=== PATIENT | male | born 1985 | race Caucasian/White ===

== ENCOUNTER 2018-06-09 05:13 | Emergency (ER) | payer MEDICARE ==
[~2018-06-09 05:13] MED LIST: ACE500 PO; AMOX-362 PO; AMOX-559 PO; AMPH20TA18 PO; AMPH5CAP9 PO; ARI10 PO; ARIP15TA9 PO; ASPI-757 PO; AUG875 PO; BUPR1PAT9 TD; CEPH-1 PO; CLON-327 PO; CYC10 PO; CYCL10TA29 PO; DEX5 PO; DIA10 PO; DIA5 PO; DIAZ-1 PO; DIVA250T84 PO; DUL20 PO; DUL30 PO; FENT-17 TD; FENT-23 TD; FENT1PAT40; FENT1PAT40 TOP; GABA-549 PO; HYDR-2946 PO; HYDR-2954 PO; HYDR-3140 PO; HYDR-4309 PO; HYDR1TAB PO; HYDR25CA83 PO; IBU800 PO; IBUP-136 PO; IBUP-1618 PO; IBUP800T37 PO; KET10 PO; LOM PO; LOR5 PO; LOR5/325 PO; LOR75 PO; LUR80PT PO; METH4TAB57 PO; METH4TAB66 PO; MID PO; MIRT-1 PO; NAP250 PO; NO ROUTINE MEDS; NOR10/325 PO; OLA5 PO; OTC COLD MEDS; OXYC-689 PO; OXYC-823 PO; OXYC-854 PO; OXYC-865 PO; OXYC-869 PO; OXYC-870 PO; PAL3PT PO; PALI6TAB8 PO; PEN250 PO; PENI-24 PO; PENT1TAB PO; PER PO; PHEN118S56 PO; PRE20 PO; PRO25 PO; PROM-110 PO; ROBC PO; TRA50 PO; TRAM-420 PO; TRAM-627 PO; TRAZ50 PO; WAR5 PO; [UNRECOGNIZED DRUG - CODE] PO
--- NOTE | 2018-06-09 05:19 | ER Report ---
History and Physical Time Seen By MD: 05:19 HPI/ROS CHIEF COMPLAINT: Right index finger laceration HISTORY OF PRESENT ILLNESS: 32-year-old male presents ambulatory to the ER complaining of right index finger laceration while whittling. Patient states he cut his right index finger with a knife [place] was cutting up some wood. Patient's tetanus shot is greater than 10 years. He notes numbness down the side of his finger. He likely injured the digital nerve. Patient demonstrates full range of motion. All tendon function appears intact on gross range of motion. Allergies: Coded Allergies: Adhesive Bandage (Verified Allergy, Mild, RED, ITCHING, 06/09/18) Home Meds Discontinued Scripts Amoxicillin (AMOXICILLIN) 500 Mg Capsule, 1 CAP PO Q8H for 10 Days, #30 CAPSULE 0 Refills Prov:ARIEL SANON MD 07/14/17 Hx Smoking: Yes (1/2-1 ppd) Smoking Status: Current: Every Day Smoker Exposure to Second Hand Smoke?: No Hx Substance Use Disorder: Yes (MARIJUANA ) Hx Alcohol Use: Yes (prefers not to drink) Constitutional Vital Sign - Last 24 Hours 06/09/18 06/09/18 06/09/18 06/09/18 05:13 05:17 05:17 05:28 Temp 98.2 Pulse ??? 107 99 Resp 14 B/P (MAP) 135/93 (107) 135/93 Pulse Ox 94 94 O2 Delivery Room Air 06/09/18 06/09/18 05:30 05:43 Pulse 96 B/P (MAP) 127/94 (105) Physical Exam General appearance: Mild distress, hyperventilating Respiratory: Chest is non tender, lungs are clear to auscultation. Cardiac: Regular rate and rhythm Extremities: right hand examination shows neurovascularly intact digits except for there is loss of light touch on the radial aspect of the right index finger. Patient sustained a transverse laceration between the PIP and MCP joint. It transversely transects about half of the digit. There is no melania bleeding. All tendon function appears intact DIFFERENTIAL DIAGNOSIS: After history and physical exam differential diagnosis was considered for finger laceration, nerve laceration, digital artery laceration, joint penetration and foreign body. Medical Decision Making ED Course/Re-evaluation ED Course Patient was minute to an examination room. H&P was done. The differential diagnoses was considered. On clinical examination. Patient has loss of sensation. He likely injured the digital nerve. Patient's tetanus status was updated with a booster vaccination. The wound was repaired as noted below. Patient was advised wound care. Suture removal will be in 10 days. Procedure: Laceration repair. Verbal consent was obtained from the patient. The 1.9 cm laceration on the radial aspect of the right index finger just distal to the MCP joint was anesthetized in the usual fashion. The wound was scrubbed, draped and explored to its base with a gloved finger. There were no deep structures involved. The wound was repaired with 5-0 Prolene 2 sutures. The wound repair was simple. The procedure was performed by myself. Decision to Disposition Date: Jun 09, 2018 Decision to Disposition Time: 05:27 Depart Departure Latest Vital Signs Vital Signs Date Time Temp Pulse Resp B/P (MAP) Pulse Ox O2 Delivery O2 Flow Rate FiO2 06/09/18 05:43 96 06/09/18 05:30 127/94 (105) 06/09/18 05:28 94 06/09/18 05:17 98.2 14 Room Air Impression: Primary Impression: Laceration of index finger Condition: Improved Disposition: HOME OR SELF-CARE Referrals: ANNY DC MD (PCP) Patient Instructions: Finger Laceration (ED) Additional Instructions: Form daily wound care, gently cleanse the wound with baby shampoo or a mild soap, blot dry Apply a thin layer of anabolic ointment and a Band-Aid Have your stitches removed in 10 days Problem Qualifiers Primary Impression: Laceration of index finger Encounter type: initial encounter Damage to nail status: without damage Foreign body presence: without foreign body Laterality: right Qualified Codes: S61.210A - Laceration without foreign body of right index finger without damage to nail, initial encounter ZAHIRA JASON DO Jun 09, 2018 05:19
[2018-06-09] MEDS ORDERED: DIPHTH/TETANUS/ACEL. PERTUSSIS IM ONLY ONE (05:25)
[2018-06-09 05:30] VITALS: BP 127/94
== END 2018-06-09 05:59 | disposition home or self-care (01) ==
LOC: ER 05:17
DX: S61.210A Laceration without foreign body of right index finger without damage to nail, initial encounter (principal)
CPT/HCPCS: 90471; 90715; 99283

== ENCOUNTER 2018-09-18 01:50 | Emergency (ER) | payer MEDICARE ==
[~2018-09-18 01:50] MED LIST changes: -HYDR-4309 PO; +HYDR-653 PO
[2018-09-18 01:57] VITALS: BP 130/89
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
[2018-09-18] MEDS ORDERED: IBUPROFEN 600 MG TAB PO ONE (03:55)
[2018-09-18] MEDS ORDERED: ACETAMINOPHEN 325 MG TAB PO ONE (03:55)
== END 2018-09-18 04:08 | disposition home or self-care (01) ==
LOC: ER 03:34
DX: S01.81XA Laceration without foreign body of other part of head, initial encounter (principal); Y04.2XXA Assault by strike against or bumped into by another person, initial encounter
CPT/HCPCS: 12013; 70450; 72125; 99284; A9270

== ENCOUNTER 2018-11-11 12:13 | Emergency (ER) | payer MEDICARE ==
[2018-11-11 12:17] VITALS: BP 151/95
--- NOTE | 2018-11-11 12:19 | ER Report ---
History and Physical Time Seen By MD: 12:17 HPI/ROS CHIEF COMPLAINT: Numbness and tingling in both arms HISTORY OF PRESENT ILLNESS: This is a 32-year-old male presents to the emergency department for numbness and tingling in both arms. Patient states that over the last 3 days he's had increased numbness and tingling in bilateral arms, more intense on the left than the right. No injury or last couple days however he states that several weeks ago he did slip and fall landing on his left arm and knee. He is also been having some neck discomfort or last several days with decreased range of motion. No nausea or vomiting. No chest pain or shortness of breath. No fevers or chills. No rashes. No meningismus. REVIEW OF SYSTEMS: Constitutional: No fever, no chills. Eyes: No discharge. ENT: No sore throat. Cardiovascular: No chest pain, no palpitations. Respiratory: No cough, no shortness of breath. Gastrointestinal: No abdominal pain, no vomiting. Genitourinary: No hematuria. Musculoskeletal: As above. Skin: No rashes. Neurological: As above. Allergies: Coded Allergies: Adhesive Bandage (Verified Allergy, Mild, RED, ITCHING, 06/09/18) Home Meds Active Scripts Methylprednisolone (METHYLPREDNISOLONE) 4 Mg Tab.ds.pk, 4 MG PO DIRECTED, #1 PACK 0 Refills Prov:MERRY HAYES Naibl CALENDER LET OFF OPERATOR-BC 11/11/18 Reported Medications Aspirin (ASPIRIN) 325 Mg Tablet, 325 MG PO Q4-6H PRN for BACK PAIN, TAB 11/11/18 Ibuprofen (IBUPROFEN) 800 Mg Tablet, 1 TAB PO Q8H, TAB 11/11/18 Past Medical/Surgical History The patient has a past medical and surgical history of "pinched nerves", headaches, smokes, pneumonia, chronic bronchitis, hip and back pain, compression fracture of the cervical and fusion of the lumbar spine, chronic back pain, multiple dental caries, uses marijuana, schizoaffective disorder, treated with marijuana, previous suicide attempts by hanging, lower dentition and gums surgery. Reviewed Nurses Notes: Yes Hx Smoking: Yes (10/05- ppd) Smoking Status: Current: Every Day Smoker Exposure to Second Hand Smoke?: No Hx Substance Use Disorder: Yes (MARIJUANA ) Hx Alcohol Use: Yes (prefers not to drink) Constitutional Vital Sign - Last 24 Hours 11/11/18 12:17 Temp 98.0 Pulse 81 Resp 17 B/P (MAP) 151/95 Pulse Ox 94 O2 Delivery Room Air Physical Exam General Appearance: The patient is alert, has no immediate need for airway protection and no signs of toxicity. Eyes: Pupils equal and round no pallor or injection. ENT, Mouth: Mucous membranes are moist. Respiratory: There are no retractions, lungs are clear to auscultation. Cardiovascular: Regular rate and rhythm. Gastrointestinal: Abdomen is soft and non tender, no masses, bowel sounds normal. Neurological: Alert and oriented 4. Moving all extremities. Following all commands. No focal neuro deficits. Skin: Warm and dry, no rashes. Musculoskeletal: Neck is supple non tender. Extremities are nontender, nonswollen and have full range of motion. DIFFERENTIAL DIAGNOSIS: After history and physical exam differential diagnosis was considered for contusion, abrasion, cervical radiculopathy, thoracic radiculopathy, impingement syndrome. Medical Decision Making EKG/Imaging Imaging Location: [facility] Patient: Toan Whitaker : 1985 Visit/Account:[id number] Date of [facility]: 11/11/2018 5 views cervical spine Indication: Neck pain. Numbness and tingling in the upper extremities. Comparison: None available. Findings: There is straightening of the normal cervical lordosis on the lateral projection. The alignment is otherwise normal. Mild severity multilevel degenerative disc disease is seen most pronounced at C5-6 and C6-7. There are small uncovertebral joint spurs at these levels. Osteoarthritis is seen at the C1-C2 articulation on the open-mouth view. On the oblique views, there is multilevel neural foraminal narrowing seen bilaterally. This is most pronounced bilaterally at C3-4. Narrowing is also seen on the right at C4-5 and C5-6 and on the left at C5-6. IMPRESSION: 1. Straightening of the normal cervical lordosis. 2. Multilevel degenerative disc disease and uncovertebral joint osteoarthropathy. 3. Multilevel neural foraminal narrowing as reported above. Report Dictated By: Shahbaz Aceves at 11/11/2018 12:58 PM Report E-Signed By: Shahbaz Aceves at 11/11/2018 1:03 PM WSN:[id number] ED Course/Re-evaluation ED Course The patient was admitted to a room. A history of square obtained. Differential diagnoses were considered. An x-ray of the cervical spine showing no acute abnormalities and ordered as showing Multilevel degenerative disc disease and uncovertebral joint osteoarthropathy, Multilevel neural foraminal narrowing. I reviewed the results with the patient. I did tell him that he will need follow- up with an orthopedist, neurosurgery at some point, I did recommend following up with Dr. Hall as soon as possible danae flood. He was also started on a Medrol Dosepak. Patient expressed understanding, was in agreement with this plan care and discharged home. I also recommended following up with his primary care provider within one week for reevaluation. Decision to Disposition Date: Nov 11, 2018 Decision to Disposition Time: 13:20 Depart Departure Latest Vital Signs Vital Signs Date Time Temp Pulse Resp B/P (MAP) Pulse Ox O2 Delivery O2 Flow Rate FiO2 11/11/18 12:17 98.0 81 17 151/95 94 Room Air Impression: Primary Impression: Cervical radiculopathy Condition: Improved Disposition: HOME OR SELF-CARE Referrals: ANNY DC MD (PCP) 1 Week PELON HALL MD 10 Days New Scripts Methylprednisolone (METHYLPREDNISOLONE) 4 Mg Tab.ds.pk 4 MG PO DIRECTED, #1 PACK 0 Refills Prov: MERRY HAYES 11/11/18 Patient Instructions: Cervical Radiculopathy (ED) Additional Instructions: Please follow-up with your primary care provider for reevaluation in one week. Please follow up with danae flood, Dr. Hall for further information and evaluation of the cervical radiculopathy. Take the Medrol Dosepak as indicated. Drink plenty of water. Follow-up with physical therapy as well. Return to the ER for any other concerns or worsening symptoms. MERRY HAYES Nov 11, 2018 12:19
[2018-11-11] MEDS ORDERED: IBUP800T37 PO (12:24)
[2018-11-11] MEDS ORDERED: ASPI-757 PO (12:24)
--- NOTE | 2018-11-11 13:08 | RADIOLOGY IMAGING REPORT ---
FACILITY: [facility] - [place] PATIENT NAME: Toan Whitaker : 1985 MR: [id number] V: [id number] EXAM DATE: ORDERING PHYSICIAN: MERRY HAYES TECHNOLOGIST: [facility] Patient: Toan Whitaker : 1985 Visit/Account:[id number] Date of Sevice: 11/11/2018 5 views cervical spine Indication: Neck pain. Numbness and tingling in the upper extremities. Comparison: None available. Findings: There is straightening of the normal cervical lordosis on the lateral projection. The alignment is ot herwise normal. Mild severity multilevel degenerative disc disease is seen most pronounced at C5-6 an d C6-7. There are small uncovertebral joint spurs at these levels. Osteoarthritis is seen at the C1-C 2 articulation on the open-mouth view. On the oblique views, there is multilevel neural foraminal sherita rowing seen bilaterally. This is most pronounced bilaterally at C3-4. Narrowing is also seen on the r ight at C4-5 and C5-6 and on the left at C5-6. IMPRESSION: 1. Straightening of the normal cervical lordosis. 2. Multilevel degenerative disc disease and uncovertebral joint osteoarthropathy. 3. Multilevel neural foraminal narrowing as reported above. Report Dictated By: Shahbaz Aceves at 11/11/2018 12:58 PM Report E-Signed By: Shahbaz Aceves at 11/11/2018 1:03 PM WSN:[id number]
[2018-11-11] MEDS ORDERED: METH4TAB66 PO (13:21)
== END 2018-11-11 13:33 | disposition home or self-care (01) ==
LOC: ER 12:20
DX: M54.12 Radiculopathy, cervical region (principal)
CPT/HCPCS: 72050

== ENCOUNTER 2018-12-11 05:05 | Emergency (ER) | payer MEDICARE ==
--- NOTE | 2018-12-11 05:15 | ER Report ---
History and Physical Time Seen By MD: 05:15 Hx. of Stated Complaint: patient states having "severe pain" in his right shoulder and in between his shoulder blades, down his right and over right lateral chest. HPI/ROS CHIEF COMPLAINT: Pain in back/neck and shoulder down right arm HISTORY OF PRESENT ILLNESS: This is a 33 year old male. He is having severe pain. This seems to start in neck and mid-back between shoulder blades. Has muscle spasming there. Pain then goes into right shoulder and down right arm to hand. Has sensory changes in his right arm/hand and at times feels weak. Has been dropping things. This has been going on for a long time, seems to worsen and improve. He was worried that he might had a lung or heart problems. Long history of cervical radiculopathy with CT and MRI scans in the past. Has history of low back problems similar that improved after a surgery. No fevers. He does note sweats and racing heart rate when pain increases. He has a history of opiod abuse/dependence, and has finally weaned off of these medicines. He has tried Gabapentin in the past, caused nausea, so stopped. Steroid bursts that have been given recently have no been effective. No cough. Deep breaths seem to make the pain in his back worse, but not short of breath and no pain in the lungs with breathing. Having mild nausea at times. No problems with bowel or bladder problems. Allergies: Coded Allergies: Adhesive Bandage (Verified Allergy, Mild, RED, ITCHING, 06/09/18) Home Meds Active Scripts Ketorolac Tromethamine (KETOROLAC TROMETHAMINE) 10 Mg Tab, 10 MG PO Q6H PRN for PAIN, #12 TAB 0 Refills Prov:ARIEL SANON MD 12/11/18 Gabapentin (GABAPENTIN) 300 Mg Capsule, 300 MG PO TID, #90 CAPSULE 0 Refills Prov:ARIEL SANON MD 12/11/18 Nortriptyline Hcl (NORTRIPTYLINE HCL) 25 Mg Cap, 25 MG PO HS, #30 CAP 0 Refills Prov:ARIEL SANON MD 12/11/18 Tizanidine Hcl (TIZANIDINE HCL) 4 Mg Tablet, 4 MG PO TID PRN for MUSCLE SPASMS, #30 TAB 0 Refills Prov:ARIEL SANON MD 12/11/18 Reported Medications Aspirin (ASPIRIN) 325 Mg Tablet, 325 MG PO Q4-6H PRN for BACK PAIN, TAB 11/11/18 Ibuprofen (IBUPROFEN) 800 Mg Tablet, 1 TAB PO Q8H, TAB 11/11/18 Discontinued Scripts Methylprednisolone (METHYLPREDNISOLONE) 4 Mg Tab.ds.pk, 4 MG PO DIRECTED, #1 PACK 0 Refills Prov:MERRY HAYES FLATBED DRIVER-BC 11/11/18 Reviewed Nurses Notes: Yes Hx Smoking: Yes (1/2-1 ppd) Smoking Status: Current: Every Day Smoker Exposure to Second Hand Smoke?: No Hx Substance Use Disorder: Yes (MARIJUANA ) Hx Alcohol Use: Yes (prefers not to drink) Constitutional Vital Sign - Last 24 Hours 12/11/18 12/11/18 12/11/18 12/11/18 05:10 05:20 05:30 05:35 Temp 98.6 Pulse 100 108 105 Resp 24 24 11 B/P (MAP) 124/108 143/89 (107) Pulse Ox 93 94 91 O2 Delivery Room Air 12/11/18 12/11/18 12/11/18 12/11/18 05:50 06:00 06:05 06:20 Pulse 92 101 83 Resp 11 26 8 B/P (MAP) 144/94 (111) Pulse Ox 91 91 91 12/11/18 12/11/18 12/11/18 12/11/18 06:22 06:27 06:30 06:35 Pulse 85 91 96 Resp 14 26 B/P (MAP) 134/92 (106) Pulse Ox 95 88 12/11/18 06:50 Pulse Ox 95 Intake and Output 12/10/18 12/10/18 12/11/18 15:00 23:00 07:00 Intake Total 1000 ml Balance 1000 ml Physical Exam General Appearance: Alert, in acute distress due to pain. Eyes: Pupils equal and round no injection. ENT: Normal oral mucosa. Moist mucous membranes. Neck: Neck is supple. Has tenderness diffuse on the right side and paraspinous muscles. No anterior pain. Respiratory: Has some tenderness to palpation in the right upper chest area. Lungs are clear to auscultation. Cardiac: regular rate and rhythm, Normal pulses in right wrist and normal peripheral perfusion. Neuro: Has decreased sensation throughout the right arm and hand. Slow to move, but no definitive weakness detected. Any movement causes increased pain in the back, shoulder, arm and hand. Musculoskeletal: Has spasming of muscles and pain in trapezius area, levator scapulae, and rhomboids. No pain with palpation of midline spine, but paraspinous pain in cervical area to the right. Some pain with palpation over the shoulder blade and into the arm. Skin: No rashes or lesions. DIFFERENTIAL DIAGNOSIS: After history and physical exam differential diagnosis was considered for pain in back and arm that appears to be muscle spasm as well as radiculopathy, with history of these symptoms in the past. Medical Decision Making Data Points Result Diagram: 12/11/1820 12/11/18 0520 Laboratory Hematology Test 12/11/18 05:20 Red Blood Count 4.78 M/uL (4.00-5.60) Mean Corpuscular Volume 92.3 fL (80.0-96.0) Mean Corpuscular Hemoglobin 31.0 pg (26.0-33.0) Mean Corpuscular Hemoglobin Concent 33.6 g/dL (32.0-36.0) Red Cell Distribution Width 12.9 % (11.5-14.5) Mean Platelet Volume 7.7 fL (7.2-11.1) Neutrophils (%) (Auto) 66.2 % (39.4-72.5) Lymphocytes (%) (Auto) 27.0 % (17.6-49.6) Monocytes (%) (Auto) 6.0 % (4.1-12.4) Eosinophils (%) (Auto) 0.4 % (0.4-6.7) Basophils (%) (Auto) 0.4 % (0.3-1.4) Nucleated RBC Relative Count (auto) 0.0 /100WBC Neutrophils # (Auto) 5.8 K/uL (2.0-7.4) Lymphocytes # (Auto) 2.4 K/uL (1.3-3.6) Monocytes # (Auto) 0.5 K/uL (0.3-1.0) Eosinophils # (Auto) 0.0 K/uL (0.0-0.5) Basophils # (Auto) 0.0 K/uL (0.0-0.1) Nucleated RBC Absolute Count (auto) 0.00 K/uL Erythrocyte Sedimentation Rate 8 mm/HOUR (0-15) D-Dimer Quantitative (PE/DVT) 0.34 ug/ml (0-0.50) Sodium Level 142 mmol/L (137-145) Potassium Level 3.8 mmol/L (3.5-5.0) Chloride Level 106 mmol/L (98-107) Carbon Dioxide Level 26 mmol/L (22-30) Blood Urea Nitrogen 13 mg/dl (9-21) Creatinine 0.80 mg/dl (0.66-1.25) Glomerular Filtration Rate Calc > 60.0 Random Glucose 107 mg/dl (75-110) Calcium Level 9.1 mg/dl (8.4-10.2) Total Bilirubin 0.9 mg/dl (0.2-1.3) Aspartate Amino Transf (AST/SGOT) 37 U/L (0-35) Alanine Aminotransferase (ALT/SGPT) 36 U/L (0-56) Alkaline Phosphatase 62 U/L (0-126) Troponin I < 0.012 ng/ml C-Reactive Protein 0.9 mg/dl (<1.0) Total Protein 7.3 g/dl (6.3-8.2) Albumin 4.5 g/dl (3.5-5.0) Chemistry Test 12/11/18 05:20 White Blood Count 8.8 k/uL (4.5-11.0) Red Blood Count 4.78 M/uL (4.00-5.60) Hemoglobin 14.8 g/dL (14.0-18.0) Hematocrit 44.2 % (42.0-52.0) Mean Corpuscular Volume 92.3 fL (80.0-96.0) Mean Corpuscular Hemoglobin 31.0 pg (26.0-33.0) Mean Corpuscular Hemoglobin Concent 33.6 g/dL (32.0-36.0) Red Cell Distribution Width 12.9 % (11.5-14.5) Platelet Count 222 K/uL (150-450) Mean Platelet Volume 7.7 fL (7.2-11.1) Neutrophils (%) (Auto) 66.2 % (39.4-72.5) Lymphocytes (%) (Auto) 27.0 % (17.6-49.6) Monocytes (%) (Auto) 6.0 % (4.1-12.4) Eosinophils (%) (Auto) 0.4 % (0.4-6.7) Basophils (%) (Auto) 0.4 % (0.3-1.4) Nucleated RBC Relative Count (auto) 0.0 /100WBC Neutrophils # (Auto) 5.8 K/uL (2.0-7.4) Lymphocytes # (Auto) 2.4 K/uL (1.3-3.6) Monocytes # (Auto) 0.5 K/uL (0.3-1.0) Eosinophils # (Auto) 0.0 K/uL (0.0-0.5) Basophils # (Auto) 0.0 K/uL (0.0-0.1) Nucleated RBC Absolute Count (auto) 0.00 K/uL Erythrocyte Sedimentation Rate 8 mm/HOUR (0-15) D-Dimer Quantitative (PE/DVT) 0.34 ug/ml (0-0.50) Glomerular Filtration Rate Calc > 60.0 Calcium Level 9.1 mg/dl (8.4-10.2) Total Bilirubin 0.9 mg/dl (0.2-1.3) Aspartate Amino Transf (AST/SGOT) 37 U/L (0-35) Alanine Aminotransferase (ALT/SGPT) 36 U/L (0-56) Alkaline Phosphatase 62 U/L (0-126) Troponin I < 0.012 ng/ml C-Reactive Protein 0.9 mg/dl (<1.0) Total Protein 7.3 g/dl (6.3-8.2) Albumin 4.5 g/dl (3.5-5.0) Coagulation Test 12/11/18 05:20 D-Dimer Quantitative (PE/DVT) 0.34 ug/ml ED Course/Re-evaluation Clinical Indication for ER IV: IV Access ED Course I reviewed his past record and imaging. He has had diagnosis of radiculopathy and recommended to see orthopedic surgery or a neurosurgeon, but has not done so yet. We tried giving him Toradol and Norflex. Minimal relief. He is on a care plan and does not receive narcotic medicines here because of this and past dependence. We discussed this. Offered to restart gabapentin. Offered to start Nortryptyline. Discussed the idea with these medicines treating neuropathic pain. Will give Toradol and Tizanidine. Could try physical therapy and massage. Not much else to offer in the ER. Needs follow-up with specialist. He expressed understanding of these points after our long discussion about these. I did not feel that repeat imaging at this time would add more to what we already know, but did offer if he would like, but declined. Decision to Disposition Date: Dec 11, 2018 Decision to Disposition Time: 06:47 Depart Departure Latest Vital Signs Vital Signs Date Time Temp Pulse Resp B/P (MAP) Pulse Ox O2 Delivery O2 Flow Rate FiO2 12/11/18 06:50 95 12/11/18 06:35 96 12/11/18 06:30 134/92 (106) 12/11/18 06:27 26 12/11/18 05:10 98.6 Room Air Impression: Primary Impression: Cervical radiculopathy Additional Impression: Muscle spasm Condition: Improved Disposition: HOME OR SELF-CARE Referrals: ANNY DC MD (PCP) New Scripts Ketorolac Tromethamine (KETOROLAC TROMETHAMINE) 10 Mg Tab 10 MG PO Q6H PRN for PAIN, #12 TAB 0 Refills Prov: ARIEL SANON MD 12/11/18 Gabapentin (GABAPENTIN) 300 Mg Capsule 300 MG PO TID, #90 CAPSULE 0 Refills Prov: AREIL SANON MD 12/11/18 Nortriptyline Hcl (NORTRIPTYLINE HCL) 25 Mg Cap 25 MG PO HS, #30 CAP 0 Refills Prov: ARIEL SANON MD 12/11/18 Tizanidine Hcl (TIZANIDINE HCL) 4 Mg Tablet 4 MG PO TID PRN for MUSCLE SPASMS, #30 TAB 0 Refills Prov: ARIEL SANON MD 12/11/18 Patient Instructions: Cervical Radiculopathy (ED) Additional Instructions: You have nerve pain in the neck/back and shoulder/arm area from disease in you cervical spine (the spine in your neck). You will need to follow-up with a neurosurgeon, or with an orthopedic surgeon who specializes in the spin. Starting physical therapy and massage can help. Steroids have provided temporary relief in the past, but do not seem to be helping now, likely from advancing disease. We can try you on Gabapentin again, starting at a low dose and slowly advancing. Start at 300mg at bedtime for 5 days, then increase to 300mg twice a day for 5 days, then increase to 300mg three times a day. We are going to start you on Nortriptyline 25mg at bedtime. Take Tizanidine 4mg every 8 hours as needed for muscle spasm and pain. Take Toradol 10mg, one every 6 hours for the next 3 days. Take with food. We again recommend against narcotic pain medications. If you need to do this, you would need to see a pain specialist for this. Problem Qualifiers ARIEL SANON MD Dec 11, 2018 05:15
[2018-12-11] MEDS ORDERED: NS(*) 0.9% 1000 ML BAG 1,000 ML IV ONE (05:30)
[2018-12-11] MEDS ORDERED: ORPHENADRINE 60MG/2ML INJ IVP ONE (05:30)
[2018-12-11] MEDS ORDERED: KETOROLAC 30 MG/ML VIAL IVP ONE (05:30)
[2018-12-11 05:43] LABS: PLATELET COUNT, AUTOMATED 222 K/uL (150-450)
[2018-12-11 06:30] VITALS: BP 134/92
--- NOTE | 2018-12-11 06:35 | EKG ---
FACILITY: [facility] - [place], [place] PATIENT NAME: TRAM TORRES : [id number] MR: [id number] V: [id number] EXAM DATE: ORDERING PHYSICIAN: ARIEL SANON TECHNOLOGIST: LIZ Nguyen Reason : CP Blood Pressure : / mmHG Vent. Rate : 098 BPM Atrial Rate : 098 BPM P-R Int : 146 ms QRS Dur : 092 ms QT Int : 358 ms P-R-T Axes : 063 055 046 degrees QTc Int : 457 ms Normal sinus rhythm Normal ECG When compared with ECG of 28-APR-2016 21:53, No significant change was found Confirmed by VICKY BOGGS ([id number]) on 12/11/2018 8:05:41 AM Referred By: Confirmed By:VICKY BOGGS
[2018-12-11] MEDS ORDERED: NOR25 PO (06:53)
[2018-12-11] MEDS ORDERED: GABA-549 PO (06:53)
[2018-12-11] MEDS ORDERED: KET10 PO (06:53)
[2018-12-11] MEDS ORDERED: TIZA-128 PO (06:53)
== END 2018-12-11 07:00 | disposition home or self-care (01) ==
LOC: ER 05:17
DX: M54.12 Radiculopathy, cervical region (principal); M62.830 Muscle spasm of back
CPT/HCPCS: 84484; 85025; 85379; 85651; 86140; 93005; 96374; 96375; 99284; J1885; J2360; J7030; 82040; 82247; 82310; 82374; 82435; 82565; 82947; 84075; 84132; 84155; 84295; 84450; 84460; 84520

== ENCOUNTER → 2018-12-20 | Outpatient (CLI) | payer MEDICARE, MEDICAID ==
[~2018-12-20] MED LIST changes: +NOR25 PO; +TIZA-128 PO
[2018-12-20 16:10] LABS: PLATELET COUNT, AUTOMATED 244 K/uL (150-450)
== END ==
LOC: LAB 15:27
PROVIDERS: ATTEND Internal Medicine
DX: M54.12 Radiculopathy, cervical region (principal); F31.9 Bipolar disorder, unspecified; R94.6 Abnormal results of thyroid function studies
CPT/HCPCS: 36415; 82040; 82247; 82310; 82374; 82435; 82565; 82947; 84075; 84132; 84155; 84295; 84439; 84443; 84450; 84460; 84520; 85025

== ENCOUNTER 2019-04-13 14:41 | Emergency (ER) | payer MEDICARE, MEDICAID ==
--- NOTE | 2019-04-13 15:05 | ER Report ---
History and Physical Time Seen By MD: 14:58 Hx. of Stated Complaint: KIDNEY/FLANK PAIN X 2 DAYS HPI/ROS CHIEF COMPLAINT: Bilateral lower back pain HISTORY OF PRESENT ILLNESS: This is a 33 and may lead presents to the emergency department for bilateral lower back pain. Patient states that he developed some bilateral lower back pain 2 days ago, has been increasing over the course last day, he also states that his urine odor has changed as well as the appearance, appears to be more concentrated. No fevers or chills. They pain does radiate into the lower abdomen bilaterally, more on the right than the left. Patient al so states that he takes ibuprofen and aspirin on a regular basis. No bloody stools or blood in the urine. No chest pain or shortness of breath. REVIEW OF SYSTEMS: Respiratory: No cough, no dyspnea. Cardiovascular: No chest pain, no palpitations. Gastrointestinal: As above. Musculoskeletal: As above. Allergies: Coded Allergies: Adhesive Bandage (Verified Allergy, Mild, RED, ITCHING, 06/09/18) Home Meds Active Scripts Tamsulosin Hcl (FLOMAX) 0.4 Mg Cap.er.24h, 0.4 MG PO DAILY for 7 Days, #7 CAP Prov:MERRY HAYES COATING LINE WORKER-BC 04/13/19 Reported Medications Aspirin (ASPIRIN) 325 Mg Tablet, 325 MG PO Q4-6H PRN for BACK PAIN, TAB 11/11/18 Ibuprofen (IBUPROFEN) 800 Mg Tablet, 1 TAB PO Q8H, TAB 11/11/18 Discontinued Scripts Ketorolac Tromethamine (KETOROLAC TROMETHAMINE) 10 Mg Tab, 10 MG PO Q6H PRN for PAIN, #12 TAB 0 Refills Prov:ARIEL SANON MD 12/11/18 Gabapentin (GABAPENTIN) 300 Mg Capsule, 300 MG PO TID, #90 CAPSULE 0 Refills Prov:ARIEL SANON MD 12/11/18 Tizanidine Hcl (TIZANIDINE HCL) 4 Mg Tablet, 4 MG PO TID PRN for MUSCLE SPASMS, #30 TAB 0 Refills Prov:ARIEL SANON MD 12/11/18 Past Medical/Surgical History The patient has a past medical surgical history of pinched nerves, headaches, smokes, pneumonia, chronic bronchitis, hip and back pain secondary to surgery, cervical fracture, effusion, dental caries, airways, methamphetamine abuse, schizoaffective disorder, treated with marijuana, chronic back pain, lower gums re-constructed. Reviewed Nurses Notes: Yes Hx Smoking: Yes (1/2-1 ppd) Smoking Status: Current: Every Day Smoker Exposure to Second Hand Smoke?: No Hx Substance Use Disorder: Yes (MARIJUANA, METH) Hx Alcohol Use: Yes (prefers not to drink) Constitutional Vital Sign - Last 24 Hours 04/13/19 04/13/19 14:48 16:00 Temp 98.3 Pulse 75 66 Resp 16 B/P (MAP) 147/100 122/99 (107) Pulse Ox 96 93 O2 Delivery Room Air Physical Exam General Appearance: The patient is alert, has no immediate need for airway protection and no current signs of toxicity. Eyes: Pupils equal and round no injection. Respiratory: Chest is non tender, lungs are clear to auscultation. Cardiac: regular rate and rhythm. Gastrointestinal: Abdomen is soft, mild bilateral lower quadrant pain right greater than left, no masses, bowel sounds normal. Musculoskeletal: Neck: Neck is supple and non tender. Bilateral CVA tenderness. Extremities have full range of motion and are non tender. Skin: No rashes or lesions. DIFFERENTIAL DIAGNOSIS: After history and physical exam differential diagnosis was considered for urinary tract infection, pyelonephritis, renal colic. Medical Decision Making Data Points Result Diagram: 04/13/19 1600 04/13/19 1600 Laboratory Hematology Test 04/13/19 16:00 White Blood Count 5.6 k/uL (4.5-11.0) Red Blood Count 5.17 M/uL (4.00-5.60) Hemoglobin 16.3 g/dL (14.0-18.0) Hematocrit 47.6 % (42.0-52.0) Mean Corpuscular Volume 92.1 fL (80.0-96.0) Mean Corpuscular Hemoglobin 31.6 pg (26.0-33.0) Mean Corpuscular Hemoglobin Concent 34.4 g/dL (32.0-36.0) Red Cell Distribution Width 13.4 % (11.5-14.5) Platelet Count 221 K/uL (150-450) Mean Platelet Volume 8.0 fL (7.2-11.1) Neutrophils (%) (Auto) 69.4 % (39.4-72.5) Lymphocytes (%) (Auto) 23.1 % (17.6-49.6) Monocytes (%) (Auto) 5.9 % (4.1-12.4) Eosinophils (%) (Auto) 1.2 % (0.4-6.7) Basophils (%) (Auto) 0.4 % (0.3-1.4) Nucleated RBC Relative Count (auto) 0.0 /100WBC Neutrophils # (Auto) 3.9 K/uL (2.0-7.4) Lymphocytes # (Auto) 1.3 K/uL (1.3-3.6) Monocytes # (Auto) 0.3 K/uL (0.3-1.0) Eosinophils # (Auto) 0.1 K/uL (0.0-0.5) Basophils # (Auto) 0.0 K/uL (0.0-0.1) Nucleated RBC Absolute Count (auto) 0.00 K/uL Chemistry Test 04/13/19 16:00 Sodium Level 141 mmol/L (137-145) Potassium Level 4.2 mmol/L (3.5-5.0) Chloride Level 108 mmol/L (98-107) Carbon Dioxide Level 25 mmol/L (22-30) Blood Urea Nitrogen 9 mg/dl (9-21) Creatinine 0.80 mg/dl (0.66-1.25) Glomerular Filtration Rate Calc > 60.0 Random Glucose 98 mg/dl (75-110) Calcium Level 8.9 mg/dl (8.4-10.2) Total Bilirubin 0.3 mg/dl (0.2-1.3) Aspartate Amino Transf (AST/SGOT) 20 U/L (0-35) Alanine Aminotransferase (ALT/SGPT) 36 U/L (0-56) Alkaline Phosphatase 56 U/L (0-126) Total Protein 6.9 g/dl (6.3-8.2) Albumin 4.1 g/dl (3.5-5.0) Urinalysis Test 04/13/19 14:48 Urine Color Straw Urine Clarity Clear Urine pH 7.0 pH (4.8-9.5) Urine Specific [place]man 1.004 Urine Protein Negative mg/dL (NEGATIVE) Urine Glucose (UA) Negative mg/dL (NEGATIVE) Urine Ketones Negative mg/dL (NEGATIVE) Urine Blood Negative (NEGATIVE) Urine Nitrite Negative (NEGATIVE) Urine Bilirubin Negative (NEGATIVE) Urine Urobilinogen Negative mg/dL (0.2-1.9) Urine Leukocyte Esterase Negative (NEGATIVE) Urine RBC None /HPF (0-2/HPF) Urine WBC None /HPF (0-5/HPF) Urine Squamous Epithelial Cells None /LPF (</=FEW) Urine Bacteria Few /HPF (NONE-FEW) Urine Mucus None /HPF (NONE-FEW) EKG/Imaging Imaging PATIENT NAME: Toan Whitaker : 1985 MR: [id number] V: [id number] EXAM DATE: [id number] ORDERING PHYSICIAN: MERRY HAYES TECHNOLOGIST: Location: [facility] - [place] Patient: Toan Whitaker : 1985 Visit/Account:[id number] Date of Sevice: 04/13/2019 CT ABDOMEN PELVIS W/ CON HISTORY: bilat flank pain, into lower abd TECHNIQUE: Following administration of IV contrast contiguous axial images acquired through the abdomen/pelvis. Coronal and sagittal reformatting also performed.Dose Lowering Technique One of the following dose optimization techniques was utilized in the perfo rmance of this exam: Automated exposure control; adjustment of the mA and/or kV according to the patient's size; or use of an iterative reconstruction technique. Specific details can be referenced in the facility's radiology CT exam operational policy. CONTRAST: 75 April 09, 2006 mL [id number]-[id number] COMPARISON: CT chest abdomen and pelvis September 29, 2014 FINDINGS: Visualized lung bases: Small amount of chronic atelectasis in the right lung base Hepatobiliary: Negative. Spleen: Negative. Adrenals: Negative. Pancreas: Negative. Kidneys ureters or bladder: There is a small 2 mm calcification in the right- sided the pelvis just proximal to the right UVJ. This was not present on the prior CT. This could potentially be within the distal right ureter although the distal right ureters not opacified with contrast to confirm exact location. There is however no evidence of hydronephrosis or hydroureter bilaterally. Pelvic contents are not ideally evaluated due to numerous artifacts from the right hip arthroplasty. Genitalia: Negative. GI: The appendix is visualized and does not appear inflamed. There is no evidence of bowel wall thickening or bowel obstruction Vessels/spaces/nodes: Negative. Bones/soft tissues: There spondylotic changes of the lumbar spine and postsurgical changes from posterior lumbar interbody fusion at L4-5. Numerous Schmorl's nodes in the visualized lower thoracic spine also again noted. These findings are similar to the prior examination . Additional findings: None pertinent. IMPRESSION: There is a small 2 mm calcification in the right-sided the pelvis just proximal to the right UVJ. This was not present on the prior CT and could potentially be within the distal right ureter. The distal right ureter is not opacified with contrast confirm its exact location. There is however no evidence of hydronephrosis or hydroureter bilaterally Extensive postoperative and spondylotic changes of the lumbar spine. Multiple Schmorl's nodes in the lower thoracic spine also noted. Small amount of chronic atelectasis the right lung base Report Dictated By: Karol Leblanc MD at 04/13/2019 4:53 PM Report E-Signed By: Karol Leblanc MD at 04/13/2019 5:07 PM WSN:[id number] PATIENT NAME: Toan Whitaker : 1985 MR: [id number] V: [id number] EXAM DATE: [id number] ORDERING PHYSICIAN: MERRY HAYES TECHNOLOGIST: Location: [facility] - [place] Patient: Toan Whitaker : 1985 Visit/Account:[id number] Date of Sevice: 04/13/2019 EXAMINATION: Frontal chest with 2 views of the abdomen HISTORY: Bilateral flank pain. COMPARISON: [facility] 03/31/2012. FINDINGS: The lungs are clear. No focal consolidation or pleural fluid. Normal heart size and pulmonary vascularity, with normal cardiomediastinal contours. Normal bowel gas pattern, with air scattered throughout normal-caliber loops of small bowel and colon. No radiographic evidence of obstruction. No free intraperitoneal air. No suspicious calcification the abdomen or pelvis. No definite urinary calculi are visualized. No acute osseous findings. Prior lumbar spine surgery with posterior jase and pedicle screw fixation at L5 and S1. Partially visualized right hip arthroplasty. IMPRESSION: 1. No definite urinary calculi are visualized. If there is persistent clinical concern for urolithiasis, noncontrast CT would be more sensitive for further evaluation. 2. The lungs are clear. 3. Normal bowel gas pattern. Report Dictated By: Wayne Pedersen MD at 04/13/2019 3:33 PM Report E-Signed By: Wayne Pedersen MD at 04/13/2019 3:35 PM WSN:[id number] ED Course/Re-evaluation Clinical Indication for ER IV: IV Access ED Course Patient was admitted to room. A history and physical obtained. Differential diagnoses were considered. Three-view abdominal series negative for any acute process, negative UA. Recommended starting IV evaluating laboratory studies, patient was agreeable, lab studies unremarkable. CT the abdomen and pelvis showing a 2mm calcification at the right UVJ. I did update the patient, gave him 30mg IV toradol and one dose of flomax. Patient was instructed to drink plenty of water, take ibuprofen and or tylenol for pain and take flomax for 7 days. Follow up with his pcp and or urology for reevaluation. He expressed un derstanding and was discharged home. Decision to Disposition Date: Apr 13, 2019 Decision to Disposition Time: 17:42 Depart Departure Latest Vital Signs Vital Signs Date Time Temp Pulse Resp B/P (MAP) Pulse Ox O2 Delivery O2 Flow Rate FiO2 04/13/19 16:00 66 122/99 (107) 93 04/13/19 14:48 98.3 16 Room Air Impression: Primary Impression: Kidney stone on right side Condition: Improved Disposition: HOME OR SELF-CARE Referrals: CHINYERE DOLL MD (PCP) 1 Week JOHN REAGAN MD 1 Week New Scripts Tamsulosin Hcl (FLOMAX) 0.4 Mg Cap.er.24h 0.4 MG PO DAILY for 7 Days, #7 CAP Prov: MERRY HAYES 04/13/19 Patient Instructions: Kidney Stones (ED) Additional Instructions: You do have a very small stone on the right side, very close to the bladder. Drink plenty of fluids. Get plenty of rest. Take 600-800mg of Ibuprofen every 8 hours as needed for the next 2-3 days. You can also take 500-1000mg of Tylenol every 8 hours as needed. Take the flomax for the next 7 days, this will help with passage of the stone too. Follow up with your PCP within one week or Urology for reevaluation. Return to the ED for any other concerns or worsening symptoms. MERRY HAYES Apr 13, 2019 15:05
--- NOTE | 2019-04-13 15:42 | RADIOLOGY IMAGING REPORT ---
FACILITY: [facility] PATIENT NAME: Toan Whitaker : 1985 MR: [id number] V: [id number] EXAM DATE: ORDERING PHYSICIAN: MERRY HAYES TECHNOLOGIST: Location: [facility] - [place] Patient: Toan Whitaker : 1985 Visit/Account:[id number] Date of Sevice: 04/13/2019 EXAMINATION: Frontal chest with 2 views of the abdomen HISTORY: Bilateral flank pain. COMPARISON: [facility] 03/31/2012. FINDINGS: The lungs are clear. No focal consolidation or pleural fluid. Normal heart size and pulmonary vascula rity, with normal cardiomediastinal contours. Normal bowel gas pattern, with air scattered throughout normal-caliber loops of small bowel and colon . No radiographic evidence of obstruction. No free intraperitoneal air. No suspicious calcification the abdomen or pelvis. No definite urinary calculi are visualized. No acute osseous findings. Prior lumbar spine surgery with posterior jase and pedicle screw fixation a t L5 and S1. Partially visualized right hip arthroplasty. IMPRESSION: 1. No definite urinary calculi are visualized. If there is persistent clinical concern for urolithias is, noncontrast CT would be more sensitive for further evaluation. 2. The lungs are clear. 3. Normal bowel gas pattern. Report Dictated By: Wayne Pedersen MD at 04/13/2019 3:33 PM Report E-Signed By: Wayne Pedersen MD at 04/13/2019 3:35 PM WSN:[id number]
[2019-04-13 16:00] VITALS: BP 122/99
[2019-04-13] MEDS ORDERED: IOPAMIDOL 76% 100 ML INFUS BTL 100 ML ONE (16:00)
[2019-04-13 16:19] LABS: PLATELET COUNT, AUTOMATED 221 K/uL (150-450)
--- NOTE | 2019-04-13 17:14 | RADIOLOGY IMAGING REPORT ---
FACILITY: [facility] PATIENT NAME: Toan Whitaker : 1985 MR: [id number] V: [id number] EXAM DATE: ORDERING PHYSICIAN: MERRY HAYES TECHNOLOGIST: Location: [facility] Patient: Toan Whitaker : 1985 Visit/Account:[id number] Date of Sevice: 04/13/2019 CT ABDOMEN PELVIS W/ CON HISTORY: bilat flank pain, into lower abd TECHNIQUE: Following administration of IV contrast contiguous axial images acquired through the abdom en/pelvis. Coronal and sagittal reformatting also performed.Dose Lowering Technique One of the following dose optimization techniques was utilized in the performance of this exam: Autom ated exposure control; adjustment of the mA and/or kV according to the patient's size; or use of an i terative reconstruction technique. Specific details can be referenced in the facility's radiology C T exam operational policy. CONTRAST: 75 April 09, 2006 mL Isovue-370 COMPARISON: CT chest abdomen and pelvis September 29, 2014 FINDINGS: Visualized lung bases: Small amount of chronic atelectasis in the right lung base Hepatobiliary: Negative. Spleen: Negative. Adrenals: Negative. Pancreas: Negative. Kidneys ureters or bladder: There is a small 2 mm calcification in the right-sided the pelvis just pr oximal to the right UVJ. This was not present on the prior CT. This could potentially be within the distal right ureter although the distal right ureters not opacified with contrast to confirm exact l ocation. There is however no evidence of hydronephrosis or hydroureter bilaterally. Pelvic contents are not ideally evaluated due to numerous artifacts from the right hip arthroplasty. Genitalia: Negative. GI: The appendix is visualized and does not appear inflamed. There is no evidence of bowel wall thi ckening or bowel obstruction Vessels/spaces/nodes: Negative. Bones/soft tissues: There spondylotic changes of the lumbar spine and postsurgical changes from post erior lumbar interbody fusion at L4-5. Numerous Schmorl's nodes in the visualized lower thoracic spi ne also again noted. These findings are similar to the prior examination . Additional findings: None pertinent. IMPRESSION: There is a small 2 mm calcification in the right-sided the pelvis just proximal to the right UVJ. Th is was not present on the prior CT and could potentially be within the distal right ureter. The dist al right ureter is not opacified with contrast confirm its exact location. There is however no evide nce of hydronephrosis or hydroureter bilaterally Extensive postoperative and spondylotic changes of the lumbar spine. Multiple Schmorl's nodes in the lower thoracic spine also noted. Small amount of chronic atelectasis the right lung base Report Dictated By: Karol Leblanc MD at 04/13/2019 4:53 PM Report E-Signed By: Karol Leblanc MD at 04/13/2019 5:07 PM WSN:[email or web address]
[2019-04-13] MEDS ORDERED: KETOROLAC 30 MG/ML VIAL IVP ONE (17:30)
[2019-04-13] MEDS ORDERED: TAMSULOSIN HCL 0.4 MG CAP PO ONE (17:30)
[2019-04-13] MEDS ORDERED: TAMS0.4C25 PO (17:33)
== END 2019-04-13 17:48 | disposition home or self-care (01) ==
LOC: ER 14:50
DX: N20.0 Calculus of kidney (principal)
CPT/HCPCS: 74022; 74177; 81001; 85025; 96374; 99284; A9270; J1885; Q9967; 82040; 82247; 82310; 82374; 82435; 82565; 82947; 84075; 84132; 84155; 84295; 84450; 84460; 84520